=== PATIENT | female | born 1990 | race Caucasian/White ===

== ENCOUNTER 2017-01-12 12:00 | Emergency (ER) | payer OTHER ==
[~2017-01-12] VITALS: Ht 147.3 cm; Wt 43.0 kg
[2017-01-12 13:33] LABS: EOSINOPHIL (%) 2.7 % (0-5); EOSINOPHIL COUNT 0.3 K/uL (0-0.3); HEMATOCRIT 36.4 % (36.0-46.0); IMMATURE GRANULOCYTE (%) 1.1 % (0.0-0.7); IMMATURE GRANULOCYTE COUNT 0.1 K/uL; LYMPHOCYTE COUNT 3.4 K/uL (1.0-2.8); MCHC 32.1 G/DL (30.0-36.0); MCV 84.1 FL (83-99); MEAN PLAT.VOLUME 10.1 uM^3 (9.5-12.4); MONOCYTE COUNT 0.8 K/uL (0-0.8); NEUTROPHIL (%) 52.6 % (45-76); PLATELET COUNT 251 K/uL (156-360); RBC DIS.WIDTH-CV 18.5 % (11.8-14.6); RED BLOOD COUNT 4.33 M/uL (3.80-5.20); WHITE BLOOD COUNT 9.5 K/uL (4.1-10.2)
[2017-01-12 13:38] LABS: PROTHROMBIN TIME 10.7 SEC (10.2-12.9)
[2017-01-12 13:41] LABS: CHLORIDE 109 mEq/L (99-109); POTASSIUM 3.8 mEq/L (3.7-5.4); SODIUM 142 mEq/L (136-147)
[2017-01-12 13:43] LABS: GLUCOSE 106 mg/dL (70-99)
[2017-01-12 13:45] LABS: ANION GAP 9 MEQ/L (2-14); TOTAL BILIRUBIN 1.2 mg/dL (0.0-1.0)
[2017-01-12 13:47] LABS: ALKALINE PHOSPHATASE 149 IU/L (3-129); GFR ESTIMATE (CALCULATED) > 59 mL/min/
[2017-01-12 13:48] LABS: UREA NITROGEN (BUN) 13 mg/dL (9-23)
[2017-01-12 13:50] LABS: LIPASE 69 U/L (1.0-51.0)
[2017-01-12 13:57] LABS: QUANTITATIVE HCG < 4.0 MIU/ML
[2017-01-12 14:22] LABS: HBSG INDEX 0.17
[2017-01-12 15:10] VITALS: BP 113/76
== END 2017-01-12 15:13 | disposition left against medical advice (07) ==
LOC: EME 12:00
PROVIDERS: Emergency Medicine
DX: R10.9 Unspecified abdominal pain (principal); R79.89 Other specified abnormal findings of blood chemistry; F19.20 Other psychoactive substance dependence, uncomplicated; F17.200 Nicotine dependence, unspecified, uncomplicated
CPT/HCPCS: 76705; 80053; 83690; 84702; 85025; 85610; 86707 90; 87340; 99281; 99285; J7030